=== PATIENT | female | born 1955 | race Caucasian/White ===

== ENCOUNTER 2023-06-13 18:53 | Emergency (ER) | payer MEDICARE, MEDICAID ==
[~2023-06-13] VITALS: Ht 165.1 cm; Wt 104.0 kg
[2023-06-13 20:13] LABS: BASOPHILS # (AUTO) 0.1 X10'3 (0-0.2); EOSINOPHILS # (AUTO) 0.4 X10'3 (0-0.9); MONOCYTES # (AUTO) 1.2 X10'3 (0-0.9); NEUTROPHILS # (AUTO) 5.6 X10'3 (1.8-7.7)
[2023-06-13 20:14] LABS: BASOPHILS % (AUTO) 1.1 % (0-1); EOSINOPHILS % (AUTO) 4.1 % (0-6); HEMATOCRIT 43.1 % (35.0-45.0); HEMOGLOBIN 14.3 g/dl (12.0-16.0); LYMPHOCYTES # (AUTO) 2.7 X10'3 (1.1-4.8); LYMPHOCYTES % (AUTO) 26.5 % (21-51); MEAN CORPUSCULAR HEMOGLOBIN 30.3 PG (27.0-31.0); MEAN CORPUSCULAR HGB CONC 33.2 g/dL (33.0-36.5); MEAN CORPUSCULAR VOLUME 91.1 FL (78-98); NEUTROPHILS % (AUTO) 56.3 % (42-75); PLATELET COUNT 468 X10'3 (140-440); RED BLOOD COUNT 4.73 X10'6 (4.20-5.60); RED CELL DISTRIBUTION WIDTH 15.2 % (11.5-14.5)
[2023-06-13] MEDS: normal saline 1000ML IV soln IVB ONE (20:18)
[2023-06-13] MEDS: ondansetron/PF 4mg/2ml inj IV ONE (20:18)
[2023-06-13] MEDS: morphine 4 MG/ML inj SYRINge IV PRN (20:19)
[2023-06-13 20:24] VITALS: TEMP 98.4
[2023-06-13 20:36] LABS: ALANINE AMINOTRANSFERASE 44 U/L (12-78); ALBUMIN 2.9 G/DL (3.4-5.0); ALBUMIN/GLOBULIN RATIO 0.6 (1.1-1.5); ALKALINE PHOSPHATASE 99 IU/L (46-116); ANION GAP 8 (8-16); BILIRUBIN,TOTAL 0.7 MG/DL (0.1-1.0); BLOOD UREA NITROGEN 17 MG/DL (7-18); BUN/CREATININE RATIO 24.3 (10.0-20.0); CALCIUM 8.3 MG/DL (8.5-10.1); CHLORIDE 101 MMOL/L (99-107); GLUCOSE 106 MG/DL (70-104); SODIUM 137 MMOL/L (135-145); TOTAL CARBON DIOXIDE 27.7 MMOL/L (24-32); TOTAL PROTEIN 8.1 G/DL (6.4-8.2); eCRCL 71 ML/MIN; eGFR 84 ML/MIN
[2023-06-13 20:39] LABS: ASPARTATE AMINO TRANSFERASE 75 U/L (10-37); POTASSIUM 4.2 MMOL/L (3.5-5.1)
[2023-06-13 22:22] LABS: BILIRUBIN,URINE SMALL (Neg); CLARITY,URINE TURBID (Clear); COLOR,URINE RED (Yellow); GLUCOSE, URINE NEGATIVE (Neg); KETONES,URINE NEGATIVE (Neg); LEUKOCYTE ESTERASE ,URINE LARGE (Neg); NITRITES, URINE POSITIVE (Neg); OCCULT BLOOD,URINE LARGE (Neg); PH,URINE 8.5 (4.8-8.0); PROTEIN,URINE 100 mg/dl (Neg)
[2023-06-13 22:26] LABS: UA COLLECTION TYPE NON-SPECIFIED
[2023-06-13 22:36] LABS: BACTERIA,URINE 4+ /HPF (Neg); RBC,URINE TNTC /HPF (0-2); SQUAMOUS EPITHELIAL CELL,UR FEW /LPF (FEW); WBC,URINE 50-100 /HPF (0-4)
[2023-06-13 22:37] LABS: AMORPHOUS PHOSPHATES 1+; TRANSITIONAL EPI CELLS,URINE FEW /HPF; WBC CLUMPS,URINE FEW /HPF (NEGATIVE)
[2023-06-13 22:49] LABS: TRIPLE PHOSPHATE CRYST 1+ /HPF (NEGATIVE)
[2023-06-13] MEDS: CefTRIAXone/D5W-Rocephin 1gm 50 ML IV STA (22:51)
[2023-06-13 23:10] VITALS: BP 140/91; PULSE 116; RESP 16; O2SAT 94
[2023-06-15] MEDS ORDERED: SOLI10TA7 PO (17:21)
[2023-06-15] MEDS ORDERED: DULO20CA18 PO (17:21)
[2023-06-15] MEDS ORDERED: METO25TA6 PO (17:21)
[2023-06-15] MEDS ORDERED: GABA-530 PO (17:21)
[2023-06-15] MEDS ORDERED: AMLO5TAB16 PO (17:21)
== END 2023-06-14 00:20 | disposition home or self-care (01) ==
LOC: ER 18:53
DX: R10.9 Unspecified abdominal pain (principal); I10 Essential (primary) hypertension
CPT/HCPCS: 36415; 74176; 80053; 81001; 83605; 84145; 85025; 87040; 87077; 87088; 87186; 96361; 96365; 96375; 99285; J0696; J2270; J2405; J7030

== ENCOUNTER 2024-02-08 09:12 | Outpatient (CLI) | payer MEDICARE, MEDICAID ==
[~2024-02-08] VITALS: Ht 162.6 cm; Wt 100.0 kg
[~2024-02-08 09:12] MED LIST: AMLO5TAB16 PO; DULO20CA18 PO; GABA-530 PO; METO25TA6 PO; SOLI10TA7 PO
[2024-02-08 10:26] VITALS: BP 112/63; PULSE 78; RESP 14; O2SAT 94
[2024-02-08] MEDS ORDERED: regadenoson 0.4mg/5ml syringe IV ONE (10:28)
[2024-02-08 10:35] VITALS: BP_SYST 118; BP_SYST 86; BP_DIAS 46; BP_DIAS 65; PULSE 80; RESP 16; O2SAT 94
[2024-02-08 10:36] VITALS: BP 111/61; PULSE 89; RESP 16; O2SAT 95
[2024-02-08 10:37] VITALS: BP 103/60; PULSE 89; RESP 16; O2SAT 96
[2024-02-08 10:38] VITALS: BP 117/57; PULSE 87; RESP 16; O2SAT 97
[2024-02-08 10:39] VITALS: BP 117/57; PULSE 81; RESP 16; O2SAT 97
[2024-02-08] MEDS: regadenoson 0.4mg/5ml syringe IV ONE (10:44)
== END 2024-02-08 23:59 | disposition home or self-care (01) ==
LOC: RAD 09:12
PROVIDERS: ATTEND Internal Medicine Interventional Cardiology
DX: I50.22 Chronic systolic (congestive) heart failure (principal); I48.91 Unspecified atrial fibrillation
CPT/HCPCS: 78452; 93017; A9500; J2785

== ENCOUNTER 2024-05-17 05:37 | Day surgery (SDC) | payer MEDICARE, MEDICAID ==
[2024-05-17] VITALS (23 sets, daily range): BP systolic 112–138; BP diastolic 61–91; PULSE 86–116; RESP 10–18; TEMP 97.5; O2SAT 90–100
[~2024-05-17] VITALS: Ht 162.6 cm; Wt 96.7 kg
[~2024-05-17 05:37] MED LIST changes: +ACET-1008 PO; -AMLO5TAB16 PO; +APIX5TAB3 PO; +BISA10SU60 RC; +CETI10TA19 PO; +CYCL-394 PO; +DOCU-148 PO; -DULO20CA18 PO; +DULO20CA50 PO; +EMPA10TA PO; +HYDR-3965 PO; +HYDR-3973 PO; +LACT1CAP65 PO; +MAGN400O6 PO; +MELA1TAB28 PO; +NA P133E4 RC; +SACU1TAB PO; -SOLI10TA7 PO; +SOLI5TAB2 PO; +VITAMIN C
[2024-05-17] MEDS: famotidine 20mg tablet PO ONE (06:27)
[2024-05-17] MEDS: ringers solution, lacted 1,000 ML IV SCH ×2 (06:28→10:00)
[2024-05-17] MEDS: DOCUMENT DATE & TIME OF BETA-BLOCKER PO ONE (06:28)
[2024-05-17] MEDS: ceFAZolin 2gm in dextrose, iso 50 ML IV ONE (06:28)
[2024-05-17] MEDS ORDERED: LIDOcaine 1% 30ml preserv. free vial ONE (06:48)
[2024-05-17] MEDS ORDERED: BUPIVAcaine 2.5mg/ml inj 50ml vial (contains preservative) ONE (06:48)
[2024-05-17] MEDS ORDERED: BUPIVACAINE liposomal/PF 13.3 MG/ML 10mL vial IM ONE (06:48)
[2024-05-17 07:21] LABS: BASOPHILS % (AUTO) 0.2 % (0-1); EOSINOPHILS # (AUTO) 0.2 X10'3 (0-0.9); EOSINOPHILS % (AUTO) 3.8 % (0-6); HEMATOCRIT 42.6 % (35.0-45.0); HEMOGLOBIN 14.2 g/dl (12.0-16.0); LYMPHOCYTES # (AUTO) 2.3 X10'3 (1.1-4.8); MEAN CORPUSCULAR HEMOGLOBIN 31.2 PG (27.0-31.0); MEAN CORPUSCULAR HGB CONC 33.3 g/dL (33.0-36.5); MEAN CORPUSCULAR VOLUME 93.7 FL (78-98); MEAN PLATELET VOLUME 7.7 FL (7.4-10.4); MONOCYTES # (AUTO) 0.8 X10'3 (0-0.9); MONOCYTES % (AUTO) 13.7 % (2-12); NEUTROPHILS # (AUTO) 2.6 X10'3 (1.8-7.7); NEUTROPHILS % (AUTO) 43.3 % (42-75); PLATELET COUNT 448 X10'3 (140-440); RED BLOOD COUNT 4.55 X10'6 (4.20-5.60); RED CELL DISTRIBUTION WIDTH 14.6 % (11.5-14.5)
[2024-05-17] MEDS ORDERED: sevoflurane 250ml liquid IH ONE (07:33)
[2024-05-17] MEDS ORDERED: rocuronium 10mg/ml inj IV ONE (07:37)
[2024-05-17] MEDS ORDERED: fentaNYL/PF 50MCG/1 ML 2ML syringe ONE (07:37)
[2024-05-17] MEDS ORDERED: propofol inj 20 ML IV ONE (07:37)
[2024-05-17] MEDS ORDERED: midazolam 1 mg/ML 2ml injection ONE (07:37)
[2024-05-17 07:47] LABS: ALANINE AMINOTRANSFERASE 38 U/L (12-78); ALBUMIN 2.5 G/DL (3.4-5.0); ALBUMIN/GLOBULIN RATIO 0.5 (1.1-1.5); ALKALINE PHOSPHATASE 80 IU/L (46-116); ANION GAP 3 (8-16); ASPARTATE AMINO TRANSFERASE 50 U/L (10-37); BILIRUBIN,TOTAL 0.7 MG/DL (0.1-1.0); BLOOD UREA NITROGEN 11 MG/DL (7-18); BUN/CREATININE RATIO 18.6 (10.0-20.0); CHLORIDE 105 MMOL/L (99-107); CREATININE 0.59 MG/DL (0.40-0.90); GLUCOSE 87 MG/DL (70-104); POTASSIUM 3.1 MMOL/L (3.5-5.1); SODIUM 139 MMOL/L (135-145); TOTAL CARBON DIOXIDE 30.9 MMOL/L (24-32); TOTAL PROTEIN 7.5 G/DL (6.4-8.2); eCRCL 83 ML/MIN; eGFR > 90 ML/MIN
[2024-05-17] MEDS ORDERED: metoprolol tartrate 1mg/ml inj IV ONE (08:20)
[2024-05-17] MEDS ORDERED: proCHLORperazine 10 MG/2 ml inj IV PRN (08:35)
[2024-05-17] MEDS ORDERED: meperidine/PF 25mg/ml syringe IV PRN ×2 (08:35)
[2024-05-17] MEDS ORDERED: morphine 2 MG/ML inj. syringe IV PRN (08:35)
[2024-05-17] MEDS ORDERED: morphine 4 MG/ML inj SYRINge IV PRN (08:35)
[2024-05-17] MEDS ORDERED: dexamethasone sod phosphate 4mg/ml inj. ONE (09:12)
[2024-05-17] MEDS ORDERED: ondansetron/PF 4mg/2ml inj ONE (09:13)
[2024-05-17] MEDS ORDERED: acetaminophen 1,000mg/100ml IV 100 ML IV ONE (09:13)
[2024-05-17] MEDS ORDERED: neostigmine methylsulfate 1 MG/ML 10ml vial ONE (09:14)
[2024-05-17] MEDS ORDERED: glycopyrrolate 0.2mg/ml inj ONE (09:14)
[2024-05-17] MEDS: meperidine/PF 25mg/ml syringe IV PRN (09:55)
[2024-05-17] MEDS: ondansetron/PF 4mg/2ml inj IV PRN (09:59)
[2024-05-17] MEDS: oxyCODONE/APAP 5-325mg tablet PO PRN (12:15)
== END 2024-05-17 13:29 ==
LOC: PAS 05:37
PROVIDERS: ATTEND Surgery
DX: K43.2 Incisional hernia without obstruction or gangrene (principal); K66.0 Peritoneal adhesions (postprocedural) (postinfection); M62.08 Separation of muscle (nontraumatic), other site; I10 Essential (primary) hypertension; I48.91 Unspecified atrial fibrillation; J44.9 Chronic obstructive pulmonary disease, unspecified; F32.9 Major depressive disorder, single episode, unspecified; F17.200 Nicotine dependence, unspecified, uncomplicated; Z86.73 Personal history of transient ischemic attack (TIA), and cerebral infarction without residual deficits; Z90.49 Acquired absence of other specified parts of digestive tract; Z90.81 Acquired absence of spleen; Z98.890 Other specified postprocedural states; Z79.01 Long term (current) use of anticoagulants; Z79.899 Other long term (current) drug therapy
CPT/HCPCS: 36415; 49595; 80053; 82948; 85025; 93005; A4215; A4618; C1758; C1781; J0131; J0666; J0690; J1100; J2003; J2175; J2250; J2405; J2704; J2710; J3010; J3490; J7030; J7120; Z7506; Z7508; Z7512; Z7610

== ENCOUNTER 2025-01-03 16:37 | Emergency (ER) | payer MEDICARE, MEDICAID ==
[~2025-01-03] VITALS: Ht 162.6 cm; Wt 85.9 kg
[~2025-01-03 16:37] MED LIST changes: -ACET-1008 PO; +ATR0.5NEB IH; -BISA10SU60 RC; -DOCU-148 PO; +FURO40TA4 PO; -HYDR-3965 PO; -HYDR-3973 PO; -LACT1CAP65 PO; -MAGN400O6 PO; -MELA1TAB28 PO; +METO-411 PO; -METO25TA6 PO; -NA P133E4 RC; +PER5325T PO; -SACU1TAB PO; +SACU1TAB7 PO; +SPIR25TA PO; -VITAMIN C
--- NOTE | 2025-01-03 16:48 | Physician Documentation ---
History of Present Illness General Stated Complaint: SEE LETY COMPLAINT Time Seen by MD: 16:45 Primary Medical Doctor: NONE History of Present Illness Initial Comments 69-year-old female brought in by ambulance. Patient is a resident at local rehab facility where she took a hit from a vape and the admission staff recommended she be evaluated in the emergency department before prior admission. She is while alert and oriented feels that [place] her faculties about her. Other than a dry mouth she is without chief complaints. Vital signs are all within normal limits. Medication Reconciliation Allergies: Coded Allergies: No Known Allergies (Unverified , 09/03/24) Scheduled Apixaban (Eliquis), 1 TAB PO Q12H, (Reported) Cetirizine HCl (Cetirizine HCl), 1 TAB PO DAILY, (Reported) Cyclobenzaprine HCl (Cyclobenzaprine HCl), 1 TAB PO BID, (Reported) Duloxetine Hcl (Cymbalta), 1 CAP PO DAILY, (Reported) Empagliflozin (Jardiance), 1 TAB PO DAILY, (Reported) Furosemide 40 MG (Lasix), 1 TAB PO DAILY, (Reported) Gabapentin (Gabapentin), 1 CAP PO Q8H, (Reported) Metoprolol Succinate (Metoprolol Succinate), 1 TAB PO DAILY, (Reported) Sacubitril/Valsartan (Entresto 49 mg-51 mg Tablet), 1 TAB PO Q12H, (Reported) Solifenacin Succinate (VESICARE tablet), 2 TAB PO DAILY, (Reported) Spironolactone (Aldactone), 0.5 TAB PO DAILY, (Reported) Scheduled PRN Ipratropium [place] Neb* (Atrovent Neb*), 0.5 MG IH Q4H PRN for SOB or wheezing, (Reported) Oxycodone Hcl/Acetaminophen 5/325 MG* (Percocet 5/325 MG*), 2 TAB PO Q4H PRN for severe pain (7-10), (Reported) Past Medical History Past Medical History: Hypertension, Hepatitis C, Chronic Pain Past Surgical History: orthopedic surgeries Other Past Surgical History: renal stent placement Smoking: Cigarettes Alcohol Use: None Drug Use: none Lives In: Home Review of Systems All Other Systems at this time: Reviewed and Negative Physical Exam Physical Exam General Appearance: alert, WD/WN, no apparent distress Head: normal inspection Face: normal inspection Pupils/EOM/Fundus: PERRLA Oropharynx: dry muscous membranes Respiratory: lungs clear Chest: no accessory muscle use Extremities: normal range of motion Neurologic: oriented x4, 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 UA drug screening obtained in the emergency department. Patient to metabolize and resting comfortably. She will be reassessed prior to discharge. Patient reassessed she remains while alert and oriented. She is very clear without and conversational safe for discharge to the rehab facility. Departure Disposition: 01 HOME / SELF CARE / HOMELESS Impression: Primary Impression: Vapes non-nicotine containing substance Condition: Stable Additional Instructions: Please avoid recreational drug use. You have been medically cleared to return to rehab facility. Referrals: NO PRIMARY CARE PROVIDER (PCP) Education Educated: Patient Educated regarding: diagnosis, treatment Signature Scribe Signature: . Attestation: . ARMIN BERGMAN Jan 03, 2025 16:48
[2025-01-03 17:40] VITALS: BP 159/106; PULSE 101; RESP 16; O2SAT 99
[2025-01-03 18:46] VITALS: TEMP 97.6
== END 2025-01-03 19:16 | disposition home or self-care (01) ==
LOC: ER 16:38
DX: U07.0 Vaping-related disorder (principal); I10 Essential (primary) hypertension; G89.29 Other chronic pain; Z86.19 Personal history of other infectious and parasitic diseases; Z79.899 Other long term (current) drug therapy; Z98.890 Other specified postprocedural states
CPT/HCPCS: 99283